=== PATIENT | female | born 1960 | race Caucasian/White ===

== ENCOUNTER 2017-01-25 06:45 | Day surgery (SDC) | payer MEDICAID ==
[2017-01-19 12:26] VITALS: BMI 18.9
[~2017-01-25 06:45] MED LIST: Ciprofloxacin 0.3% OPTH SOLN OS SCH; Cyclopentolate 1% Opth (2 ml) OS SCH; Flurbiprofen 0.03% Opht SOLN OS SCH; Lactated Ringer's 500 ML IV ONE; Phenylephrine 2.5% Opht Soln OS SCH; Tropicamide 1% Opht SOLUTION OS SCH
[2017-01-25] MEDS ORDERED: Lactated Ringer's 500 ML IV ONE (06:59)
[2017-01-25] MEDS ORDERED: Tobramycin/Dexamethasone (Tobradex) Opth Sol (2.5 ml) ONE (07:27)
[2017-01-25] MEDS: Chondroitin/Hyaluronate Opth Syringe KIT (0.55 ml-0.5 ml) IO ONE ×2 (08:25→09:25)
[2017-01-25] MEDS: Carbachol 0.01% IO ONE ×2 (08:25→09:25)
[2017-01-25] MEDS: Hyaluronidase Human, Recombi 150 U/ML VIAL ONE ×2 (08:26→09:20)
[2017-01-25] MEDS: Lidocaine 2% Inj (20ml) ONE ×2 (08:27→09:20)
[2017-01-25] MEDS: Povidone Iodine Ophthalmic 5% Soln ONE ×2 (08:28→09:20)
[2017-01-25] MEDS: Tetracaine 0.5% Ophth (OR ONLY) ONE ×2 (08:28→09:20)
[2017-01-25] MEDS: Tobramycin/Dexamethasone OPHT OINT ONE ×2 (08:28→09:39)
[2017-01-25] MEDS ORDERED: Propofol 10 mg/ml Inj (20 ML) ONE (09:15)
[2017-01-25] MEDS ORDERED: Lidocaine Hydrochloride 5 ML INJ ONE (09:15)
[2017-01-25 10:12] VITALS: RESP 15
[2017-01-25 10:38] VITALS: BP 109/55; PULSE 81; TEMP 98.8; O2SAT 98
--- NOTE | 2017-01-25 16:57 | OP ---
PROCEDURE DATE: 01/25/2017 PREOPERATIVE DIAGNOSIS: CATARACT LEFT EYE. POSTOPERATIVE DIAGNOSIS: CATARACT LEFT EYE. OPERATIVE PROCEDURE: CATARACT EXTRACTION WITH IMPLANT LEFT EYE. ANESTHESIA TYPE: LOCAL, STAND-BY. ANESTHESIOLOGIST: COMPLICATIONS: NONE. PROCEDURE: Local anesthesia was achieved using a mixture of 1% lidocaine and Amphadase. The patient was then prepped and draped in the usual sterile fashion for ophthalmic surgery. Betadin e drops were placed into the eye. A lid speculum was used and a sideport incision was made using a 1 5 degree blade. Viscoelastic was used to fill the anterior chamber and a 2.7 millimeter slit blade w as used to create a surgical opening. Additional viscoelastic was placed into the eye and a capsulor rhexis was performed. Hydrodissection and delineation were then carried out. Phacoemulsification of the nucleus was performed with ease and cortical cleanup was achieved without difficulty. The capsul ar bag was refilled using viscoelastic and a posterior chamber lens was inserted through the existing wound and placed into the capsular bag and easily centered. All viscoelastic was then aspirated from the eye and Miochol was instilled for good symmetric pupilla ry constriction. The sideport wound was hydrated as necessary and a good watertight closure was obse rved at the conclusion of the case. A TobraDex soaked collagen shield was then placed over the eye. The lid speculum was removed. TobraDex ointment was placed onto the eye and a patch and shield were placed. The patient tolerated the procedure well. Adam Noyola MD cc: [id number] TT: 01/25/2017 16:55:44 bennett
== END 2017-01-25 10:52 | disposition home or self-care (01) ==
LOC: C.SDS 06:45
PROVIDERS: ATTEND Ophthalmology
DX: H26.9 Unspecified cataract (principal)
CPT/HCPCS: 66984; C1780; J2704; J3470; J7120

== ENCOUNTER 2017-01-30 17:45 | Emergency (ER) | payer MEDICAID ==
[2017-01-30 17:45] VITALS: BMI 18.9
[2017-01-30 17:55] VITALS: BP 126/82; PULSE 86; RESP 17; TEMP 99; O2SAT 98
--- NOTE | 2017-01-30 19:29 | C.PDOC ---
History Of Present Illness 56 y/o female presents to ED with complaints of sore throat and dysphagia worsening over the last 2 days. Patient reports occasionally feeling chills. Denies fever, headache, shortness of breath, or other associated symptoms. Time Seen by Provider: 01/30/17 19:28 Chief Complaint (Nursing): ENT Problem History Per: Patient History/Exam Limitations: None Onset/Duration Of Symptoms: Days Current Symptoms Are (Timing): Still Present Symptoms Have Been: Continuous Past Medical History Reviewed: Historical Data, Nursing Documentation, Vital Signs Vital Signs: Last Vital Signs Temp 99.0 F 01/30/17 17:55 Pulse 86 01/30/17 17:55 Resp 17 01/30/17 17:55 BP 126/82 01/30/17 17:55 Pulse Ox 98 01/30/17 20:28 - Medical History PMH: Hypercholesterolemia Family History: States: No Known Family Hx - Social History Hx Alcohol Use: No Hx Substance Use: No - Immunization History Hx Tetanus Toxoid Vaccination: No Hx Influenza Vaccination: No Hx Pneumococcal Vaccination: No Review Of Systems Constitutional: Positive for: Chills. Negative for: Fever ENT: Positive for: Throat Pain. Negative for: Ear Pain, Nose Discharge, Nose Congestion Cardiovascular: Negative for: Chest Pain, Palpitations Respiratory: Negative for: Cough, Shortness of Breath, Wheezing Skin: Negative for: Rash Neurological: Negative for: Dizziness Physical Exam - Physical Exam Appears: Non-toxic, No Acute Distress, Other (Speaking in complete sentences and tolerating PO) Skin: Warm, Dry Head: Atraumatic, Normacephalic, Other (ecchymosis over left cheek s/p cataracts surgery ) Eye(s): bilateral: Normal Inspection Ear(s): Bilateral: Normal Nose: Normal Oral Mucosa: Moist Throat: No Exudate, No Drooling Chest: Symmetrical Cardiovascular: Rhythm Regular Respiratory: No Rales, No Rhonchi, No Stridor, No Wheezing Neurological/Psych: Oriented x3, Normal Speech ED Course And Treatment - Laboratory Results Result Diagrams: 01/30/17 19:57 01/30/17 19:57 O2 Sat by Pulse Oximetry: 98 (RA) Pulse Ox Interpretation: Normal - CT Scan/US CT Neck Soft Tissue Other Rad Studies (CT/US): Read By Radiologist, Radiology Report Reviewed CT/US Interpretation: MPRESSION: No soft tissue masses are seen in the neck. No evidence of fracture inflammation or abscess, or. foreign body. Slightly distended air-filled esophagus proximally, for more optimal assessment and to exclude. potential distal lesions, consider CT chest correlation. Progress Note: CT neck soft tissue, labs ordered. Reevaluation Time: 23:39 Reassessment Condition: Improved Medical Decision Making Medical Decision Making: Upon provider reevaluation patient is feeling better, is medically stable, and requires no further treatment in the ED at this time. Patient will be discharged home with Rx for prednisone and motrin . Counseling was provided and all questions were answered regarding diagnosis and need for follow up with the referred clinic. There is agreement to discharge plan. Return if symptoms persist or worsen. Disposition Counseled Patient/Family Regarding: Studies Performed, Diagnosis, Need For Followup - Disposition Referrals: [facility] [Outside] [facility] [Outside] Disposition: HOME/ ROUTINE Disposition Time: 19:28 Condition: FAIR Additional Instructions: Please return if symptoms recur Prescriptions: Ibuprofen [Motrin] 400 mg PO TID PRN #15 tab PRN Reason: Pain, Moderate (4-7) Prednisone [Deltasone] 20 mg PO DAILY #5 tablet Instructions: Pharyngitis (ED), Dysphagia (ED) Print Language: MOHAWK - Clinical Impression Clinical Impression: Throat pain in adult, Dysphagia - Scribe Statement The provider has reviewed the documentation as recorded by the Alondra Kumar Provider Scribe Attestation: All medical record entries made by the Carloibchristy were at my direction and personally dictated by me. I have reviewed the chart and agree that the record accurately reflects my personal performance of the history, physical exam, medical decision making, and the department course for this patient. I have also personally directed, reviewed, and agree with the discharge instructions and disposition.
[2017-01-30] MEDS ORDERED: Sodium Chloride 0.9% 1,000 ML IV ONE (19:35)
[2017-01-30 19:59] LABS: BASO % 0.3 % (0.0-2.0); EOS % 0.6 % (0.0-4.0); HEMATOCRIT 37.4 % (34.0-47.0); LYMPH # 1.7 K/uL (1.0-4.3); LYMPH % 30.5 % (20.0-40.0); MEAN CELL VOLUME 93.7 fL (81.0-99.0); MEAN CORPUSCULAR HEMOGLOBIN 30.9 pg (27.0-31.0); MEAN PLATELET VOLUME 7.2 fL (7.2-11.7); MONO # 0.5 K/uL (0.0-0.8); MONO % 8.8 % (0.0-10.0); RED CELL DISTRIBUTION WIDTH 13.6 % (11.5-14.5); WHITE BLOOD COUNT 5.6 K/uL (4.8-10.8)
[2017-01-30 20:07] LABS: CHLORIDE 96 mmol/L (98-107); SODIUM 137 mmol/L (132-148)
[2017-01-30 20:09] LABS: GFR AFRICAN-AMERICAN > 60
[2017-01-30 20:10] LABS: ALB/GLOB RATIO 1.5 (1.0-2.1); ALKALINE PHOSPHATASE 145 U/L (38-126); ALT/SGPT 100 U/L (9-52); AST/SGOT 88 U/L (14-36); BILIRUBIN,TOTAL < 0.1 mg/dL (0.2-1.3); BLOOD UREA NITROGEN 15 mg/dL (7-17); CARBON DIOXIDE 30 mmol/L (22-30); GLUCOSE,RANDOM 97 mg/dL (65-105); TOTAL PROTEIN 7.9 g/dL (6.3-8.3)
[2017-01-30 20:11] LABS: CALCIUM 9.3 mg/dl (8.6-10.4)
--- NOTE | 2017-01-31 08:47 | CT ---
PROCEDURE: CT NECK WITHOUT CONTRAST HISTORY: dysphagia, throat pain, COMPARISON: None. TECHNIQUE: CT of the neck without intravenous contrast. Coronal and sagittal reformats generated. Radiation dose: DLP 2-2.45 mGy-cm This CT exam was performed using one or more of the following dose reduction techniques: Automated exposure control, adjustment of the mA and/or kV according to patient size, and/or use of iterative reconstruction technique. FINDINGS: NASOPHARYNX: Unremarkable. SUPRAHYOID NECK: Unremarkable oropharynx, oral cavity, parapharyngeal space and retropharyngeal space. INFRAHYOID NECK: Unremarkable larynx, hypopharynx, and supraglottic space. Vocal cords intact. MASS: None. GLANDS: Parotid and submandibular glands unremarkable. Normal size thyroid gland, without nodule. LYMPH NODES: Normal. No lymphadenopathy. CERVICAL SPINE: No fracture or focal lesion. OTHER FINDINGS: Mild gaseous distention of the proximal thoracic esophagus, uncertain significance. Because of the possibility of distal esophageal obstruction, consider correlation with CT chest. IMPRESSION: Mild gaseous distention of visualized portion of proximal thoracic esophagus. Nonspecific. Because of the possibility of distal esophageal obstruction, consider correlation with CT chest. The remainder of the examination is unremarkable. Preliminary interpretation of this examination was reported by [employer] [facility] at 8:23 p.m. on 01/30/2017. There is concurrence of this report with the preliminary interpretation.
== END 2017-01-30 19:28 | disposition home or self-care (01) ==
LOC: C.ER 17:45 → SUPCPDRO 17:45 → C.ER 19:28
DX: R13.10 Dysphagia, unspecified (principal); R07.0 Pain in throat; E78.00 Pure hypercholesterolemia, unspecified
CPT/HCPCS: 70490; 80053; 85025; 87040; 96360; 99282; J7040